=== PATIENT | female | born 1960 | race Two or more races ===

== ENCOUNTER 2020-04-27 17:37 | Emergency (ER) | payer MEDICAID ==
[~2020-04-27] VITALS: Ht 157.5 cm; Wt 63.5 kg
--- NOTE | 2020-04-27 18:00 | NUR ---
ED Nurse Note: Pt walked into ED for R foot injury yesterday. She was at work and carpet fell on foot, R foot swelling and pain 11/07. Pt is alert and orientedx4, amb with assist. Pt has 3+ dorsalis bilaterla pulses. R Foot ROM 1/5.
[2020-04-27] MEDS ORDERED: HYDROcodone/Acetamin 5/325 tab ORAL ONE (19:00)
--- NOTE | 2020-04-27 19:02 | Emergency Room Report ---
History of Present Illness General Chief Complaint: Lower Extremity Injury Source: Patient Present Illness HPI 59-year-old female presents to the emergency department complaining of localized 8 out of 10 severity pain to the lateral aspect of the right foot since yesterday. Patient reports that she was at work when allegedly a large rolled up carpet fell onto her foot. Patient reports some bruising and swelling. She reports pain and inability to bear weight. Patient denies open wounds or bleeding. Patient denies paresthesias. She denies taking anything for her symptoms. 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 Patient History Past Medical History: see triage record Past Surgical History: none Pertinent Family History: none Now: No Reviewed Nursing Documentation: PMH: Agreed; PSxH: Agreed Nursing Documentation-PMH Past Medical History: No Stated History Review of Systems All Other Systems: negative except mentioned in HPI Physical Exam Vital Signs Date Time Temp Pulse Resp B/P (MAP) Pulse Ox O2 Delivery O2 Flow Rate FiO2 04/27/20 17:52 98.1 63 18 107/66 (80) 97 Room Air Sp02 EP Interpretation: reviewed, normal General Appearance: no apparent distress, alert, GCS 15, non-toxic Head: normocephalic, atraumatic Eyes: bilateral eye normal inspection, bilateral eye PERRL ENT: hearing grossly normal, normal voice Neck: full range of motion Respiratory: lungs clear, normal breath sounds, speaking full sentences Cardiovascular #1: regular rate, rhythm, no edema, normal capillary refill Cardiovascular #2: 2+ dorsalis pedis (R) Musculoskeletal: back normal, normal range of motion, tender - Lateral aspect of the right foot, bruising noted, mild soft tissue swelling, no obvious visible deformity. Neurologic: alert, motor strength/tone normal, oriented x3, sensory intact, responsive, speech normal, grossly normal Psychiatric: judgement/insight normal Skin: Ecchymosis/Bruising - Localized area of the lateral aspect of the right foot Medical Decision Making PA Attestation Dr. Junior Is my supervising Physician whom patient management has been discussed with. Diagnostic Impression: Primary Impression: Metatarsal bone fracture Qualified Codes: S92.354A - Nondisplaced fracture of fifth metatarsal bone, right foot, initial encounter for closed fracture Additional Impression: Crush injury of foot Qualified Codes: S97.81XA - Crushing injury of right foot, initial encounter ER Course 59-year-old female presents to the emergency department complaining of localized 8 out of 10 severity pain to the lateral aspect of the right foot since yesterday. Patient reports that she was at work when allegedly a large rolled up carpet fell onto her foot. Patient reports some bruising and swelling. She reports pain and inability to bear weight. Patient denies open wounds or bleeding. Patient denies paresthesias. She denies taking anything for her symptoms. No other aggravating or relieving factors Ddx considered but are not limited to Fracture, dislocation, contusion, Sprain/Strain/Spasm, Crush Injury Vital signs: are WNL, pt. is afebrile. H&PE are most consistent with musculoskeletal injury will perform imaging to r/o fractures/dislocations. ORDERS: - X-ray Right Foot 3 views - negative for fx, Dislocation, or significant soft tissue injury, per preliminary read in ED, and signed by GRZEGORZ Lemons, my supervising physician has reviewed, and agrees with my interpretation. ED INTERVENTIONS: - Nyssa 5mg PO ( pt. eloped prior to administration) - Right Cast shoe Splint applied by agricultural research technician. Pt. remains neurovascularly intact. --Patient is provided with crutches and instructed on their use DISCHARGE: At this time pt. is stable for d/c to home. Will provide printed patient care instructions, and any necessary prescriptions. Care plan and follow up instructions have been discussed with the patient prior to discharge. Pt. ELOPED after having immobilization and crutches given. SHe Eloped prior to receiving her Nyssa and DC paperwork with her requested work note from the RN. Other X-Ray Diagnostic Results Other X-Ray Diagnostic Results #1: X-Ray ordered: Right Foot # of Views/Limited Vs Complete: 3 View Indication: Pain EP Interpretation: Yes GRZEGORZ Xray: Interpretation reviewed, by supervising MD, and agrees with findings. Interpretation: no dislocation, no soft tissue swelling, other - suspected proximal nondisplaced fifth metatarsal fracture. Impression: No acute disease Electronically Signed by: Tabby Lemons PA-C Other X-Ray Diagnostic Results #2: X-Ray ordered: Right ankle # of Views/Limited Vs Complete: 3 View Indication: Pain EP Interpretation: Yes PA Xray: Interpretation reviewed, by supervising MD, and agrees with findings. Interpretation: no dislocation, no soft tissue swelling, no fractures Impression: No acute disease Electronically Signed by: Tbaby Lemons PA-C Last Vital Signs Date Time Temp Pulse Resp B/P (MAP) Pulse Ox O2 Delivery O2 Flow Rate FiO2 04/27/20 17:52 98.1 63 18 107/66 (80) 97 Room Air Status: improved Disposition: HOME, SELF-CARE Condition: Stable Scripts Ibuprofen* (MOTRIN*) 600 Mg Tablet 600 MG ORAL THREE TIMES A DAY, #30 TAB Prov: Tabby Lemons 04/27/20 Hydrocodone/Acetaminophen 5-325* (HYDROCODONE/ACETAMINOPHEN 5-325*) 1 Each Tablet 1 TAB ORAL Q6H PRN for For Pain, #12 TAB 0 Refills Prov: Tabby Lemons 04/27/20 [facility],REFERRING (PCP) Orthopedic Urgent Care Departure Forms: Return to Work Return to Work Date: May 02, 2020 Other Restrictions: May return Sooner if Symptoms have resolved. Return to Full Activity: May 02, 2020 Work Restrictions: No Heavy Lifting, No Prolonged Standing Patient Instructions: Contusion, [id number], Metatarsal Fracture Additional Instructions: Take medications as directed. Do not drink alcohol, drive, or operate heavy machinery while taking Nyssa as this may cause drowsiness. Follow up with an CHART COMPUTER in 3-5 days, even if your symptoms have resolved. If symptoms persist MRI may be required at the discretion of your PCP or Ortho Specialist. --Please review list of primary care clinics, if you do not already have a primary care provider who can give you an Orthopedic Referral. Return sooner to ED if new symptoms occur, or current symptoms become worse. - Please note that this Emergency Department Report was dictated using [employer] department chair technology software, occasionally this can lead to erroneous entry secondary to interpretation by the dictation equipment. Tabby Lemons Apr 27, 2020 19:02
[2020-04-27] MEDS ORDERED: IBUPROFEN600 M1 ORAL (19:26)
[2020-04-27] MEDS ORDERED: HYDROCODON-ACE1 EA15 ORAL (19:26)
--- NOTE | 2020-04-27 19:49 | NUR ---
Advised pt I would return with norco 5/325mg pain pill and discharge information. Pt replied that she understood this information. Pt was gone upon my return to room. Advised charge nurse and unopened [place] 5/325mg was wasted in pyxis.
[2020-04-27 19:52] VITALS: BP 120/65
--- NOTE | 2020-04-28 13:53 | Diagnostic Imaging Report ---
EXAM: X-RAY XRAY Foot Complete R CLINICAL HISTORY: Foot pain. COMPARISON: None FINDINGS: Total of 3 views of the right foot were obtained. Alignment is anatomic. There is no fracture, bony lesions or erosions. Joint spaces are unremarkable. Surrounding soft tissue is normal. IMPRESSION: NO ACUTE BONY ABNORMALITY.
--- NOTE | 2020-04-28 14:36 | Diagnostic Imaging Report ---
Indication: Right ankle pain Technique: 3 views of the right ankle Comparison: none Findings: No acute fracture. No dislocation. Joint spaces are preserved Impression: Negative
== END 2020-04-27 19:45 | disposition home or self-care (01) ==
LOC: EMR 18:54
DX: S92.354A Nondisplaced fracture of fifth metatarsal bone, right foot, initial encounter for closed fracture (principal); S97.81XA Crushing injury of right foot, initial encounter; X58.XXXA Exposure to other specified factors, initial encounter; Y93.9 Activity, unspecified; Y92.9 Unspecified place or not applicable
CPT/HCPCS: 73610; 73630; Z7502; 29515; 99283